=== PATIENT | male | born 2005 | race Caucasian/White ===

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

== ENCOUNTER 2024-06-10 01:49 | Emergency (ER) | payer BC, SELFPAY ==
--- NOTE | 2024-06-10 02:11 | EDPHYS ---
Physician Documentation [facility] Name: Man De La O Age: 19 yrs Sex: Male : 2005 Arrival Date: 06/10/2024 Time: 01:49 Bed 8 Private MD: ED Physician Krishan Sweeney HPI: 06/10 02:27 This 19 yrs old Male presents to ER via Ambulatory with complaints of High Blood rt Pressure. 02:27 Patient presents to the ED with reported high blood pressure at about 140s over 90s at rt home, states that this worried him. States that he takes exogenous testosterone. Denies chest pain, shortness of breath, other acute complaints, symptoms are mild in severity, no other aggravating alleviating factors.. Historical: - Allergies: 02:08 Versed; lg3 02:08 Neurontin; lg3 - Home Meds: 02:08 testosterone enanthate 200 mg/mL intramuscular oil every week [Active]; lg3 - PMHx: 02:08 None; lg3 - PSHx: 02:08 Tonsillectomy; lg3 - Immunization history:: Adult Immunizations up to date. - Infectious Disease History:: Denies. - Social history:: Smoking status: Reported history of juuling and/or vaping. Patient/guardian denies using alcohol, street drugs. - Family history:: not pertinent. ROS: 02:27 Constitutional: Negative for fever, chills, and weight loss, Cardiovascular: Negative rt for chest pain, palpitations, and edema, Respiratory: Negative for shortness of breath, cough, wheezing, and pleuritic chest pain, Abdomen/GI: Negative for abdominal pain, nausea, vomiting, diarrhea, and constipation, MS/Extremity: Negative for injury and deformity, Skin: Negative for injury, rash, and discoloration, Neuro: Negative for headache, weakness, numbness, tingling, and seizure, Exam: 02:26 Constitutional: This is a well developed, well nourished patient who is awake, alert, rt and in no acute distress. Head/Face: Normocephalic, atraumatic. Chest/axilla: Normal chest wall appearance and motion. Nontender with no deformity. No lesions are appreciated. Cardiovascular: Regular rate and rhythm with a normal S1 and S2. No gallops, murmurs, or rubs. Normal PMI, no JVD. No pulse deficits. Respiratory: Lungs have equal breath sounds bilaterally, clear to auscultation and percussion. No rales, rhonchi or wheezes noted. No increased work of breathing, no retractions or nasal flaring. Abdomen/GI: Soft, non-tender, with normal bowel sounds. No distension or tympany. No guarding or rebound. No evidence of tenderness throughout. Skin: Warm, dry with normal turgor. Normal color with no rashes, no lesions, and no evidence of cellulitis. MS/ Extremity: Pulses equal, no cyanosis. Neurovascular intact. Full, normal range of motion. Neuro: Awake and alert, GCS 15, oriented to person, place, time, and situation. Cranial nerves II-XII grossly intact. Motor strength 5/5 in all extremities. Sensory grossly intact. Cerebellar exam normal. Normal gait. :26 ECG was reviewed by the Attending Physician. Vital Signs: 02:05 BP 155 / 77; Pulse 79; Resp 16 S; Temp 98.5(O); Pulse Ox 99% on R/A; Weight 70.31 kg lg3 (R); Height 5 ft. 9 in. (R); Pain 0/10; 02:05 Body Mass Index 22.89 (70.31 kg, 175.26 cm) - Percentile 48.3 % lg3 02:05 Pain Scale: Adult lg3 MDM: 02:06 Medical Screening Exam initiated rt 02:27 Differential diagnosis: Hypertension, testosterone. Data reviewed: vital signs, nurses rt notes, EKG. Test considered but Not performed: Other Details No symptoms currently, low suspicion for endorgan dysfunction, labs are not indicated. Counseling: I had a detailed discussion with the patient and/or guardian regarding the historical points, exam findings, and any diagnostic results supporting the discharge/admit diagnosis, the presence of at least one elevated blood pressure reading (>120/80) during this emergency department visit, the need for outpatient follow up. Response to treatment: the patient's symptoms have markedly improved after treatment. 06/10 02:05 Order name: EKG - Nurse/Tech; Complete Time: 02:13 rt EC:26 Rate is 69 beats/min. Rhythm is regular, Normal Sinus Rhythm with No ectopy. QRS [place] rt is Normal. GA interval is normal. QRS interval is normal. QT interval is normal. No Q waves. T waves are Normal. No ST changes noted. Administered Medications: No medications were administered Disposition Summary: 06/10/24 02:11 Discharge Ordered Notes: Location: Home rt Problem: new rt Symptoms: have improved rt Condition: Stable rt Diagnosis - Elevated blood-pressure reading, without diagnosis of hypertension rt Followup: rt - With: Private Physician - When: 7 - 10 days - Reason: Discharge Instructions: - Discharge Summary Sheet rt - Hypertension, Adult rt Forms: - Medication Reconciliation Form rt - Antibiotic Education rt - Prescription Opioid Use rt - Patient Portal Instructions rt - Leadership Thank You Letter rt Signatures: Génesis Jerome RN RN lg3 Krishan Sweeney MD MD rt
--- NOTE | 2024-06-10 02:11 | ER ---
Nurse's Notes [facility] Name: Man De La O Age: 19 yrs Sex: Male : 2005 Arrival Date: 06/10/2024 Time: 01:49 Bed 8 Private MD: Diagnosis: Elevated blood-pressure reading, without diagnosis of hypertension Presentation: 06/10 02:05 Chief complaint: Patient states: my blood pressure was high at home and i kept checking lg3 it and it stayed high. reports 140's/70's. i think my estrogen is to high and its giving me anxiety. Coronavirus screen: Client denies travel out of the [place] in the last 14 days. At this time, the client does not indicate any symptoms associated with coronavirus-19. Ebola Screen: No symptoms or risks identified at this time. Initial Sepsis Screen: Does the patient meet any 2 criteria? No. Patient's initial sepsis screen is negative. Does the patient have a suspected source of infection? No. Patient's initial sepsis screen is negative. Risk Assessment: Do you want to hurt yourself or someone else? Patient reports no desire to harm self or others. Onset of symptoms was June 10, 2024. 02:05 Method Of Arrival: Ambulatory lg3 02:05 Acuity: KEYUR 4 lg3 Triage Assessment: 02:08 General: Appears in no apparent distress. comfortable, Behavior is cooperative, lg3 anxious. Pain: Denies pain. EENT: No deficits noted. No signs and/or symptoms were reported regarding the EENT system. Neuro: No deficits noted. Trent Agitation-Sedation Scale (RASS): 0 - Alert and Calm Level of Consciousness is awake, alert, obeys commands, Oriented to person, place, time, situation. Cardiovascular: No deficits noted. Denies chest pain, shortness of breath, Capillary refill < 3 seconds Clubbing of nail beds is absent JVD is absent Patient's skin is warm and dry. Respiratory: No deficits noted. Airway is patent Respiratory effort is even, unlabored, Respiratory pattern is regular, symmetrical. GI: No deficits noted. No signs and/or symptoms were reported involving the gastrointestinal system. : No signs and/or symptoms were reported regarding the genitourinary system. Derm: No deficits noted. No signs and/or symptoms reported regarding the dermatologic system. Skin is intact, is healthy with good turgor, Skin is dry, Skin is normal, Skin temperature is warm. Musculoskeletal: No deficits noted. No signs and/or symptoms reported regarding the musculoskeletal system. Circulation, motion, and sensation intact. Range of motion: intact in all extremities. Historical: - Allergies: 02:08 Versed; lg3 02:08 Neurontin; lg3 - Home Meds: 02:08 testosterone enanthate 200 mg/mL intramuscular oil every week [Active]; lg3 - PMHx: 02:08 None; lg3 - PSHx: 02:08 Tonsillectomy; lg3 - Immunization history:: Adult Immunizations up to date. - Infectious Disease History:: Denies. - Social history:: Smoking status: Reported history of juuling and/or vaping. Patient/guardian denies using alcohol, street drugs. - Family history:: not pertinent. Screenin:12 [facility] ED Fall Risk Assessment (Adult) History of falling in the last 3 months, lg3 including since admission No falls in past 3 months (0 pts) Confusion or Disorientation No (0 pts) Intoxicated or Sedated No (0 pts) Impaired Gait No (0 pts) Mobility Assist Device Used No (0 pt) Altered Elimination No (0 pt) Score/Fall Risk Level 0 - 2 = Low Risk Oriented to surroundings, Maintained a safe environment, Educated pt \T\ family on fall prevention, incl call for assistance when getting out of bed, Assessed \T\ reinforced patient's understanding of fall precautions. Abuse screen: Denies threats or abuse. Denies injuries from another. Nutritional screening: No deficits noted. Tuberculosis screening: No symptoms or risk factors identified. Assessment: 02:13 General: see triage assessment. lg3 Vital Signs: 02:05 BP 155 / 77; Pulse 79; Resp 16 S; Temp 98.5(O); Pulse Ox 99% on R/A; Weight 70.31 kg lg3 (R); Height 5 ft. 9 in. (R); Pain 0/10; 02:05 Body Mass Index 22.89 (70.31 kg, 175.26 cm) - Percentile 48.3 % lg3 02:05 Pain Scale: Adult 3 ED Course: 01:54 Patient arrived in ED. gm2 01:57 Krishan Sweeney MD is Attending Physician. rt 02:07 Triage completed. lg3 02:08 Arm band placed on right wrist. lg3 02:12 Patient has correct armband on for positive identification. Placed in gown. Bed in low lg3 position. Call light in reach. Side rails up X 1. Client placed on continuous cardiac and pulse oximetry monitoring. NIBP monitoring applied. Door closed. Noise minimized. Warm blanket given. Pillow given. Family accompanied patient. 02:12 EKG done, by ED staff, reviewed by Krishan Sweeney MD. Patient maintains SpO2 lg3 saturation greater than 95% on room air. 02:19 Génesis Jerome, RN is Primary Nurse. lg3 02:20 No provider procedures requiring assistance completed. Patient did not have IV access lg3 during this emergency room visit. 02:21 Provided Education on: anxiety. lg3 Administered Medications: No medications were administered Medication: 02:20 VIS not applicable for this client. lg3 Outcome: 02:11 Discharge ordered by . rt 02:20 Discharged to home ambulatory, lg3 02:20 Condition: stable 02:20 Discharge instructions given to patient, Instructed on discharge instructions, follow up and referral plans. Demonstrated understanding of instructions, follow-up care, 02:21 Patient left the ED. lg3 Signatures: Génesis Jerome RN RN lg3 Krishan Sweeney MD MD rt Aline Aburto 2
[2024-06-10 02:25] VITALS: BP 155/77; TEMP 98.5; O2SAT 99
--- NOTE | 2024-06-10 10:56 | EKG ---
Test Date: 2024-06-10 Test Time: 02:11:29 Monotypist: RAE MEASUREMENT RESULTS: Intervals: Rate: 69 NH: 122 QRSD: 92 QT: 370 QTc: 396 [place]: P: 80 NH: 122 QRS: 88 T: 72 INTERPRETIVE STATEMENTS: Normal sinus rhythm Normal ECG No previous ECG available for comparison Electronically Signed On 06-10-24 10:55:51 CDT by Nolan Patino
== END 2024-06-10 02:21 | disposition home or self-care (01) ==
LOC: ER 01:49
DX: R03.0 Elevated blood-pressure reading, without diagnosis of hypertension (principal)
CPT/HCPCS: 93005; 99283

== ENCOUNTER 2024-06-22 22:24 | Emergency (ER) | payer SELFPAY ==
[2024-06-22] MEDS ORDERED: IBUPROFEN 200 MG TAB PO ONE (22:46)
[2024-06-22] MEDS ORDERED: IBUPROFEN 400 MG TAB ONE (22:47)
--- NOTE | 2024-06-22 23:38 | EDPHYS ---
Physician Documentation [facility] Name: Man De La O Age: 19 yrs Sex: Male : 2005 Arrival Date: 06/22/2024 Time: 22:24 Bed DX3 Private MD: ED Physician Chintan Hill HPI: 06/22 22:30 This 19 yrs old Male presents to ER via Unassigned with complaints of Leg Pain, tree kb feel on leg. 22:30 Pt is a 19 year old male who presents for pain to right lower leg. States he was kb cutting a tree and a log (about 300 pounds) fell into right lower leg around 1330. States he was able to walk for the first few hours afterwards, but is unable to now. States the pain, swelling and bruising has gotten progressively worse. . Historical: - Allergies: 22:40 Neurontin; vc1 22:40 Versed; vc1 - Home Meds: 22:40 testosterone enanthate 200 mg/mL intramuscular oil every week [Active]; vc1 - PSHx: 22:40 Tonsillectomy; vc1 - Immunization history:: Client reports having NOT received the Covid vaccine. - Infectious Disease History:: Denies. - Social history:: Smoking status: Reported history of juuling and/or vaping. ROS: 22:34 Constitutional: As per HPI kb Exam: 22:34 Constitutional: This is a well developed, well nourished patient who is awake, alert, kb and in no acute distress. Head/Face: Normocephalic, atraumatic. ENT: Moist Mucous membranes Cardiovascular: Regular rate Respiratory: Respirations even and unlabored. No increased work of breathing. Talking in full sentences Neuro: Awake and alert, GCS 15, oriented to person, place, time, and situation. 22:34 Musculoskeletal/extremity: Extremities: grossly normal except: noted in the right ocasio: ecchymosis, pain, swelling, tenderness, ROM: intact in all extremities, Circulation is intact in all extremities. Sensation intact. Weight bearing: is unable to bear weight, Vital Signs: 22:39 Weight 74.84 kg; Height 5 ft. 10 in. ; Pain 3/10; vc1 22:41 BP 140 / 64; Pulse 84; Resp 16; Temp 98.3; Pulse Ox 99% ; vc1 22:39 Body Mass Index 23.67 (74.84 kg, 177.8 cm) - Percentile 58.0 % vc1 22:39 Pain Scale: Adult vc1 MDM: 22:29 Medical Screening Exam initiated kb 22:35 Differential diagnosis: closed fracture, contusion. Data reviewed: vital signs, nurses kb notes. Historians other than the Patient: Parent: father. 23:36 Counseling: I had a detailed discussion with the patient and/or guardian regarding the kb historical points, exam findings, and any diagnostic results supporting the discharge/admit diagnosis, radiology results, the need for outpatient follow up, a family practitioner, to return to the emergency department if symptoms worsen or persist or if there are any questions or concerns that arise at home. 06/22 22:34 Order name: Tib Fib Right XRAY kb 06/22 22:34 Order name: Ice pack; Complete Time: 22:44 kb 06/22 23:37 Order name: Elier Wrap; Complete Time: 00:16 kb 06/22 23:37 Order name: Crutches; Complete Time: 00:16 kb Administered Medications: 22:51 Drug: Ibuprofen PO 600 mg PO once Route: PO; vc1 06/23 00:16 Follow up: Response: No adverse reaction; No change in condition vc1 00:16 Drug: Hydrocodone-Acetaminophen PO (7.5 mg-325 mg) 1 tabs PO once Route: PO; vc1 00:16 Follow up: Response: Medication administered at discharge. vc1 Disposition: 20:54 Co-signature as Attending Physician, Chintan Hill MD I agree with the assessment sp4 and plan of care. I reviewed the patient's care provided by the Advanced Practice Provider and agree with the diagnosis and treatment plan. Disposition Summary: 06/22/24 23:37 Discharge Ordered Condition: Stable kb Diagnosis - Contusion of right lower leg kb Followup: kb - With: Emergency Department - When: As needed - Reason: Worsening of condition Followup: kb - With: Private Physician - When: 2 - 3 days - Reason: Recheck today's complaints, Continuance of care, Re-evaluation by your physician Discharge Instructions: - Discharge Summary Sheet kb - Contusion, [id number] kb Forms: - Medication Reconciliation Form kb - Antibiotic Education kb - Prescription Opioid Use kb - Patient Portal Instructions kb - Leadership Thank You Letter kb Signatures: Dispatcher [employer] NEELAMMS JohnsonKinjal, [employer]-C [employer]-Brynn Eddy RN RN vc1 Chintan Hill MD MD sp4 Corrections: (The following items were deleted from the chart) 06/22 22:37 22:30 Pt is a 19 year old male who presents for pain to right lower leg. States he was kb cutting a tree and a log fell into right lower leg around 1330. States he was able to walk for the first few hours afterwards, but is unable to now. States the pain, swelling and bruising has gotten progressively worse. . kb
--- NOTE | 2024-06-22 23:38 | ER ---
Nurse's Notes [facility] Name: Man De La O Age: 19 yrs Sex: Male : 2005 Arrival Date: 06/22/2024 Time: 22:24 Bed DX3 Private MD: Diagnosis: Contusion of right lower leg Presentation: 06/22 22:39 Chief complaint: Patient states: cutting a tree and log fell on leg. Coronavirus vc1 screen: Client denies travel out of the [place] in the last 14 days. At this time, the client does not indicate any symptoms associated with coronavirus-19. Ebola Screen: Patient negative for fever greater than or equal to 101.5 degrees Fahrenheit, and additional compatible Ebola Virus Disease symptoms Patient denies exposure to infectious person. Patient denies travel to an Ebola-affected area in the 21 days before illness onset. No symptoms or risks identified at this time. Initial Sepsis Screen: Does the patient meet any 2 criteria? No. Patient's initial sepsis screen is negative. Does the patient have a suspected source of infection? No. Patient's initial sepsis screen is negative. Risk Assessment: Do you want to hurt yourself or someone else? Patient reports no desire to harm self or others. Onset of symptoms was June 22, 2024 at 13:30. Care prior to arrival: None. 22:39 Method Of Arrival: Wheelchair vc1 22:39 Acuity: KEYUR 3 vc1 Triage Assessment: 22:40 General: Appears in no apparent distress. uncomfortable, slender, well groomed, well vc1 developed, Behavior is calm, cooperative, appropriate for age. Pain: Complains of pain in right ocasio Pain does not radiate. Pain currently is 8 out of 10 on a pain scale. Quality of pain is described as sharp. EENT: No deficits noted. No signs and/or symptoms were reported regarding the EENT system. Neuro: Level of Consciousness is awake, alert, obeys commands, Oriented to person, place, time, situation, Appropriate for age. Cardiovascular: Heart tones S1 S2 present Capillary refill < 3 seconds Patient's skin is warm and dry. Respiratory: Airway is patent Respiratory effort is even, unlabored, Respiratory pattern is regular, symmetrical, Breath sounds are clear bilaterally. GI: No deficits noted. No signs and/or symptoms were reported involving the gastrointestinal system. : No deficits noted. No signs and/or symptoms were reported regarding the genitourinary system. Derm: Skin is intact, is healthy with good turgor, Skin is dry, Skin is normal, Bruising that is bright red, dark purple, on right ocasio. Musculoskeletal: Reports pain in right ocasio. Historical: - Allergies: 22:40 Neurontin; vc1 22:40 Versed; vc1 - Home Meds: 22:40 testosterone enanthate 200 mg/mL intramuscular oil every week [Active]; vc1 - PSHx: 22:40 Tonsillectomy; vc1 - Immunization history:: Client reports having NOT received the Covid vaccine. - Infectious Disease History:: Denies. - Social history:: Smoking status: Reported history of juuling and/or vaping. Screenin:40 [facility] ED Fall Risk Assessment (Adult) History of falling in the last 3 months, vc1 including since admission No falls in past 3 months (0 pts) Confusion or Disorientation No (0 pts) Intoxicated or Sedated No (0 pts) Impaired Gait Yes (1 pt) Mobility Assist Device Used Yes (1 pt) Altered Elimination No (0 pt) Score/Fall Risk Level 0 - 2 = Low Risk Oriented to surroundings, Maintained a safe environment, Educated pt \T\ family on fall prevention, incl call for assistance when getting out of bed. Abuse screen: Denies threats or abuse. Nutritional screening: No deficits noted. Tuberculosis screening: No symptoms or risk factors identified. Vital Signs: 22:39 Weight 74.84 kg; Height 5 ft. 10 in. ; Pain 3/10; vc1 22:41 BP 140 / 64; Pulse 84; Resp 16; Temp 98.3; Pulse Ox 99% ; vc1 22:39 Body Mass Index 23.67 (74.84 kg, 177.8 cm) - Percentile 58.0 % vc1 22:39 Pain Scale: Adult vc1 ED Course: 22:28 Patient arrived in ED. gm2 22:29 Kinjal Johnson FNP-C [facility]. kb 22:29 Chintan Hill MD is Attending Physician. kb 22:40 Triage completed. vc1 22:41 Arm band placed on right wrist. vc1 22:44 Brynn Miller RN is Primary Nurse. vc1 23:00 Tib Fib Right XRAY In Process Unspecified. EDMS 06/23 00:17 No provider procedures requiring assistance completed. Patient did not have IV access vc1 during this emergency room visit. 00:18 Patient has correct armband on for positive identification. treated from diagnostic vc1 chair. Provided Education on: f/u with Ortho. Administered Medications: 06/22 22:51 Drug: Ibuprofen PO 600 mg PO once Route: PO; vc1 06/23 00:16 Follow up: Response: No adverse reaction; No change in condition vc1 00:16 Drug: Hydrocodone-Acetaminophen PO (7.5 mg-325 mg) 1 tabs PO once Route: PO; vc1 00:16 Follow up: Response: Medication administered at discharge. vc1 Medication: 00:17 VIS not applicable for this client. vc1 Outcome: 06/22 23:37 Discharge ordered by . fay 06/23 00:19 Discharged to home with crutches, vc1 Condition: stable Discharge instructions given to patient, Instructed on discharge instructions, follow up and referral plans. Demonstrated understanding of instructions, follow-up care, 00:20 Patient left the ED. vc1 Signatures: Dispatcher [employer] EDCO Kinjal Johnson, GAMAL NELSONP-Brynn Eddy RN RN vc1 Aline Aburto 2
[2024-06-23] MEDS ORDERED: HYDROCODONE/APAP 7.5/325 MG TAB ONE (00:07)
[2024-06-23 00:25] VITALS: BP 140/64; TEMP 98.3; O2SAT 99
--- NOTE | 2024-06-23 06:12 | RAD REPORT ---
EXAM DESCRIPTION: Tib Fib Right CLINICAL HISTORY: 19 years Male, PAIN COMPARISON: None. IMPRESSION: No fracture or dislocation. Joint spaces are preserved. Bone mineralization is normal. Distal pretibial swelling. Electronically signed by: Serge Sheikh DO 06/22/2024 11:31 PM CDT RP 9 Due to temporary technical issues with the PACS/GoInstant reporting system, reports are being prince d by the in-house radiologist without review as a courtesy to ensure prompt reporting the interpreting radiologist is fully responsible for the content of the report. Transcribed Date/Time: 06/23/2024 6:12 AM
== END 2024-06-23 00:20 | disposition home or self-care (01) ==
LOC: ER 22:24
DX: S80.11XA Contusion of right lower leg, initial encounter (principal); W22.8XXA Striking against or struck by other objects, initial encounter
CPT/HCPCS: 99283

== ENCOUNTER 2024-07-08 22:57 | Emergency (ER) | payer SELFPAY ==
[2024-07-08] MEDS ORDERED: KETOROLAC 30 MG/ML INJ ONE (23:26)
--- NOTE | 2024-07-09 02:20 | RAD REPORT ---
CT CHEST WITHOUT IV CONTRAST CLINICAL INDICATION: Dropped bar with weights onto lower chest. COMPARISON: None TECHNIQUE: CT exam of the chest was obtained without contrast. Multiplanar reformats were provided. D ose-optimization techniques such as automated exposure control, iterative reconstruction, and mA and/or kV adjustment for patient size was utilized for this examination. FINDINGS: LOWER NECK: Unremarkable. AIRWAYS: Trachea and mainstem bronchi are patent. LUNGS/PLEURA: 1.2 cm nodule in left lower lobe on series 201 image 68. Additional multiple small 3 to 4 mm nodules scattered in both lungs (for example all series 201 image 84, 86 in right lower lobe, image 39, 50, 57, 61 on left upper lobe, image 77, 81 in left lower lobe. No focal air space consolid ation. No pleural effusions or pneumothorax. VASCULATURE: Unremarkable. MEDIASTINUM/NODES: No pathologic adenopathy. HEART: Normal heart size. No pericardial effusion. CHEST WALL: Unremarkable. UPPER ABDOMEN: Unremarkable. BONES: No acute fracture or malalignment. Mild endplate degenerative changes in multiple lower thorac ic vertebral bodies. No acute fracture. No compression deformity. No suspicious sclerotic or lytic bone lesion. IMPRESSION: 1. Indeterminant multiple pulmonary nodules with largest one measuring 1.2 cm. Findings could refle ct infectious, inflammatory or neoplastic process. Follow-up in 3 months is recommended. 2. No acute traumatic injury in CT chest. Electronically signed by: Winter Cottrell MD 07/09/2024 02:04 AM CDT Due to temporary technical issues with the PACS/contrib.com reporting system, reports are being prince d by the in-house radiologist without review as a courtesy to ensure prompt reporting the interpreting radiologist is fully responsible for the content of the report. Transcribed Date/Time: 07/09/2024 2:20 AM
--- NOTE | 2024-07-09 02:40 | EDPHYS ---
Physician Documentation [facility] Name: Man De La O Age: 19 yrs Sex: Male : 2005 Arrival Date: 07/08/2024 Time: 22:57 Bed DX3 Private MD: ED Physician Chintan Hill HPI: 07/08 23:06 This 19 yrs old Male presents to ER via Unassigned with complaints of dropped wieghts kb on chest. 23:06 Pt is a 19 year old male who presents for chest pain after dropping weighted bar onto kb it around [id number] this evening. Reports weight of 225#. Denies any other injuries. Denies shortness of breath.. Historical: - Allergies: 23:10 Neurontin; me1 23:10 Versed; me1 - Immunization history:: Adult Immunizations up to date. - Infectious Disease History:: Denies. - Social history:: Smoking status: Reported history of juuling and/or vaping. ROS: 23:05 Constitutional: As per HPI kb Exam: 23:05 Constitutional: This is a well developed, well nourished patient who is awake, alert, kb and in no acute distress. Head/Face: Normocephalic, atraumatic. ENT: Moist Mucous membranes Cardiovascular: Regular rate Respiratory: Respirations even and unlabored. No increased work of breathing. Talking in full sentences Abdomen/GI: Soft, non-tender. No distention Skin: Warm, dry with normal turgor. Normal color. MS/ Extremity: Pulses equal, no cyanosis. Neurovascular intact. Full, normal range of motion. Neuro: Awake and alert, GCS 15, oriented to person, place, time, and situation. 23:05 Chest/axilla: Inspection: normal, Palpation: tenderness, that is mild, of the diaphragm, that totally reproduces the patient's complaints, Vital Signs: 23:08 BP 146 / 87; Pulse 108; Resp 20; Temp 97.7; Pulse Ox 100% ; Weight 72.57 kg; Height 5 me1 ft. 10 in. ; Pain 4/10; 07/09 01:00 BP 127 / 81; Pulse 95; Resp 18 S; Pulse Ox 100% on R/A; ha1 02:30 BP 135 / 85; Pulse 98; Resp 17 S; Pulse Ox 100% on R/A; ha1 07/08 23:08 Body Mass Index 22.96 (72.57 kg, 177.8 cm) me1 07/08 23:08 Pain Scale: Adult me1 MDM: 07/08 23:02 Medical Screening Exam initiated kb 23:06 Data reviewed: vital signs, nurses notes. kb 07/09 01:01 Transition of care: After a detail discussion of the patient's case, care is kb transferred to Chintan Hill MD. 07/09 00:55 Order name: Thorax Wo Con EDMS Administered Medications: 07/08 23:36 Not Given (Patient Refused): [id number] mg IM once ha1 Disposition: 07/09 02:38 Co-signature as Attending Physician, Chintan Hill MD I agree with the assessment sp4 and plan of care. I reviewed the patient's care provided by Advanced Practice Provider \T\ agree w/ the diagnosis \T\ care plan. I personally saw the pt \T\ performed a substantive portion of the visit, incldng all aspects of the (History/Exam/Medical Decision Making). Disposition Summary: 07/09/24 02:39 Discharge Ordered Notes: Location: Home sp4 Problem: new sp4 Symptoms: have improved sp4 Condition: Stable sp4 Diagnosis - Solitary pulmonary nodule sp4 - Acute traumatic chest wall pain, bilateral pulmonary nodules, pulmonary nodule sp4 as incidental finding Followup: sp4 - With: Luiz Nguyen DO - When: 7 - 10 days - Reason: Recheck today's complaints Discharge Instructions: - Discharge Summary Sheet sp4 - Pulmonary Nodule sp4 Forms: - Patient Portal Instructions sp4 Signatures: Dispatcher MedHost EDFL Kinjal Johnson, SQL ARCHITECT-C SQL ARCHITECT-Chintan Monterroso MD MD sp4 Yenny Naidu RN RN ar1 Mikki Scherer RN 1 Corrections: (The following items were deleted from the chart) 07/08 23:05 23:05 Chest Single View+RAD.RAD.BRZ ordered. EDFL EDMS 23:10 23:10 PSHx: Tonsillectomy; me1 ar1 23:10 23:10 PSHx: Tonsillectomy; me1 me1 07/09 01:07/08 23:09 Thorax Wo Con+CT.RAD.BRZ ordered. EDMS EDMS
--- NOTE | 2024-07-09 02:40 | ER ---
Nurse's Notes [facility] Name: Man De La O Age: 19 yrs Sex: Male : 2005 Arrival Date: 07/08/2024 Time: 22:57 Bed Waiting Private MD: Diagnosis: Solitary pulmonary nodule;Acute traumatic chest wall pain, bilateral pulmonary nodules, pulmonary nodule as incidental finding Presentation: 07/08 23:08 Chief complaint: Patient states: about 9 pm patient dropped the bar with 225 lbs on it me1 across his lower chest. Pain radiates to midback. Coronavirus screen: Vaccine status: Patient reports being unvaccinated. Ebola Screen: No symptoms or risks identified at this time. Initial Sepsis Screen: Does the patient meet any 2 criteria? HR > 90 bpm. No. Patient's initial sepsis screen is negative. Does the patient have a suspected source of infection? No. Patient's initial sepsis screen is negative. Risk Assessment: Do you want to hurt yourself or someone else? Patient reports no desire to harm self or others. Onset of symptoms was July 08, 2024 at 21:00. 23:08 Method Of Arrival: Ambulatory [facility] 23:08 Acuity: KEYUR 4 me1 Historical: - Allergies: 23:10 Neurontin; me1 23:10 Versed; me1 - Immunization history:: Adult Immunizations up to date. - Infectious Disease History:: Denies. - Social history:: Smoking status: Reported history of juuling and/or vaping. Screenin/09 00:00 [facility] ED Fall Risk Assessment (Adult) History of falling in the last 3 months, ha1 including since admission No falls in past 3 months (0 pts) Confusion or Disorientation No (0 pts) Intoxicated or Sedated No (0 pts) Impaired Gait No (0 pts) Mobility Assist Device Used No (0 pt) Altered Elimination No (0 pt) Score/Fall Risk Level 0 - 2 = Low Risk Oriented to surroundings, Maintained a safe environment, Educated pt \\T\\ family on fall prevention, incl call for assistance when getting out of bed, Hourly rounding (assess needs \\T\\ fall precautionary measures) done. Abuse screen: Denies threats or abuse. Denies injuries from another. Nutritional screening: No deficits noted. Tuberculosis screening: No symptoms or risk factors identified. Assessment: 07/08 23:03 General: Appears comfortable, Behavior is calm, cooperative. Pain: Complains of pain in ha1 diaphragm Pain currently is 7 out of 10 on a pain scale. Quality of pain is described as aching. Neuro: Level of Consciousness is awake, alert, obeys commands, Oriented to person, place, time, situation. Cardiovascular: Capillary refill < 3 seconds Patient's skin is warm and dry. Respiratory: Airway is patent Respiratory effort is even, unlabored, Respiratory pattern is regular, symmetrical. GI: Abdomen is round non-distended, Bowel sounds present X 4 quads. Reports upper abdominal pain. : No signs and/or symptoms were reported regarding the genitourinary system. Derm: Skin is pink, warm \\T\\ dry. Musculoskeletal: Circulation, motion, and sensation intact. Range of motion: intact in all extremities. 07/09 00:00 Reassessment: Patient and/or family updated on plan of care and expected duration. Pain ha1 level reassessed. Patient is alert, oriented x 3, equal unlabored respirations, skin warm/dry/pink. 01:00 Reassessment: Patient and/or family updated on plan of care and expected duration. Pain ha1 level reassessed. Patient is alert, oriented x 3, equal unlabored respirations, skin warm/dry/pink. 02:00 Reassessment: Patient and/or family updated on plan of care and expected duration. Pain ha1 level reassessed. Patient is alert, oriented x 3, equal unlabored respirations, skin warm/dry/pink. 02:05 Reassessment: PATIENT STATES" I AM TIRED OF WAITING, I AM JUST GOING TO GO HOME AND THE [facility] CAN CALL ME WITH THE RESULTS.". 02:20 Reassessment: DR. HILL CALLED PATIENT TO NOTIFIED OF CT RESULTS. [facility] 02:46 Reassessment: Patient and/or family updated on plan of care and expected duration. Pain ha1 level reassessed. Patient is alert, oriented x 3, equal unlabored respirations, skin warm/dry/pink. PATIENT RETURNED TO THE ER. Vital Signs: 07/08 23:08 BP 146 / 87; Pulse 108; Resp 20; Temp 97.7; Pulse Ox 100% ; Weight 72.57 kg; Height 5 me1 ft. 10 in. ; Pain 4/10; 07/09 01:00 BP 127 / 81; Pulse 95; Resp 18 S; Pulse Ox 100% on R/A; ha1 02:30 BP 135 / 85; Pulse 98; Resp 17 S; Pulse Ox 100% on R/A; ha1 07/08 23:08 Body Mass Index 22.96 (72.57 kg, 177.8 cm) me1 07/08 23:08 Pain Scale: Adult ks1 ED Course: 07/08 23:02 Patient arrived in ED. gm2 23:02 Kinjal Johnson FNP-C is PHCP. kb 23:02 Chintan Hill MD is Attending Physician. kb 23:03 Patient has correct armband on for positive identification. Bed in low position. Call ha1 light in reach. Side rails up X 1. 23:03 Provided Education on:. ha1 23:10 Triage completed. ks1 23:10 Arm band placed on Patient placed in waiting room. ks1 07/09 00:16 Bright Flaherty RN is Primary Nurse. rg5 01:03 Thorax Wo Con In Process Unspecified. EDMS 02:38 Luiz Nguyen DO is Referral Physician. sp4 02:48 No provider procedures requiring assistance completed. Patient did not have IV access ha1 during this emergency room visit. Administered Medications: 07/08 23:36 Not Given (Patient Refused): [id number] mg IM once ha1 Outcome: 07/09 02:39 Discharge ordered by MD. sp4 02:49 Discharged to home ambulatory, ha1 02:49 Condition: stable 02:49 Discharge instructions given to patient, Instructed on discharge instructions, follow up and referral plans. Demonstrated understanding of instructions, follow-up care, 03:04 Patient left the ED. ha1 Signatures: Dispatcher [employer] EDKY Kinjal Johnson FNP-C FNP-Mikki Baker RN RN Chintan Toure MD MD sp4 Yenny Naidu RN RN ks1 Aline Aburto 2 Bright Flaherty RN RN rg5 Corrections: (The following items were deleted from the chart) 07/08 23:10 23:10 PSHx: Tonsillectomy; ks1 me1 23:10 23:10 PSHx: Tonsillectomy; ks1 me1 07/09 01:31 07/08 23:28 In radiology for Thorax Wo Con+CT.RAD.BRZ. EDMS EDMS
[2024-07-09 03:09] VITALS: TEMP 97.7; O2SAT 100
[2024-07-09 03:12] VITALS: BP 135/85
== END 2024-07-09 03:04 | disposition home or self-care (01) ==
LOC: ER 22:57
DX: R07.89 Other chest pain (principal); R91.1 Solitary pulmonary nodule
CPT/HCPCS: 71250

== ENCOUNTER 2025-01-06 23:21 | Emergency (ER) | payer SELFPAY ==
--- NOTE | 2025-01-07 | EDPHYS ---
Physician Documentation [facility] Name: Man De La O Age: 19 yrs Sex: Male : 2005 Arrival Date: 01/06/2025 Time: 23:21 Bed IW4 Private MD: ED Physician Chintan Hill HPI: 01/06 23:34 This 19 yrs old Male presents to ER via Unassigned with complaints of High sp4 Blood Pressure. 01/07 00:08 Patient has eloped prior to my exam. sp4 Historical: - Allergies: 01/06 23:36 Neurontin; cp4 23:36 Versed; cp4 - Home Meds: 23:36 testosterone enanthate 200 mg/mL intramuscular oil every week [Active]; cp4 - Immunization history:: Adult Immunizations up to date. - Infectious Disease History:: Denies. - Social history:: Smoking status: Reported history of juuling and/or vaping. - Family history:: not pertinent. ROS: 01/07 20:45 Constitutional: Negative for fever, chills, and weight loss, positive for elevated sp4 blood pressure Vital Signs: 01/06 23:34 BP 169 / 76; Pulse 102; Resp 18; Temp 98.2; Pulse Ox 100% ; Weight 79.38 kg; Height 5 cp4 ft. 9 in. ; Pain 0/10; 23:34 Body Mass Index 25.84 (79.38 kg, 175.26 cm) cp4 23:34 Pain Scale: Adult cp4 MDM: 01/07 00:08 ED course: Patient has eloped prior to my exam. sp4 05:41 Medical Screening Exam initiated sp4 01/06 23:47 Order name: Cardiac monitoring sp4 01/06 23:47 Order name: EKG - Nurse/Tech sp4 01/06 23:47 Order name: IV Saline Lock sp4 01/06 23:47 Order name: Labs collected and sent sp4 01/06 23:47 Order name: O2 Per Protocol sp4 01/06 23:47 Order name: O2 Sat Monitoring sp4 Administered Medications: No medications were administered Disposition: 20:45 Chart complete. sp4 Disposition Summary: 01/07/25 00:00 Eloped Notes: Disposition: before being seen by provider al5 Reason: (see nurse's notes) al5 Signatures: Dispatcher [employer] EDChintan Huang MD MD sp4 Valerie Morales cp4 Mary Beth Forbes RN RN al5 Corrections: (The following items were deleted from the chart) 01/06 23:48 23:48 URINE DRUG SCREEN+.LAB.BRZ ordered. EDMS EDMS
--- NOTE | 2025-01-07 | ER ---
Nurse's Notes [facility] Name: Man De La O Age: 19 yrs Sex: Male : 2005 Arrival Date: 01/06/2025 Time: 23:21 Bed IW4 Private MD: Diagnosis: Presentation: 01/06 23:34 Chief complaint: Patient states: states high blood pressure after taking pre workout cp4 and going to the gym. Coronavirus screen: Client denies travel out of the [place] in the last 14 days. At this time, the client does not indicate any symptoms associated with coronavirus-19. Ebola Screen: Patient negative for fever greater than or equal to 101.5 degrees Fahrenheit, and additional compatible Ebola Virus Disease symptoms Patient denies exposure to infectious person. Patient denies travel to an Ebola-affected area in the 21 days before illness onset. No symptoms or risks identified at this time. Initial Sepsis Screen: Does the patient meet any 2 criteria? HR > 90 bpm. No. Patient's initial sepsis screen is negative. Does the patient have a suspected source of infection? No. Patient's initial sepsis screen is negative. Risk Assessment: Do you want to hurt yourself or someone else? Patient reports no desire to harm self or others. Onset of symptoms was January 06, 2025. 23:34 Method Of Arrival: Ambulatory cp4 23:34 Acuity: KEYUR 3 cp4 Triage Assessment: 23:36 General: Appears in no apparent distress. comfortable, Behavior is calm, cooperative, cp4 appropriate for age. Pain: Denies pain. Historical: - Allergies: 23:36 Neurontin; cp4 23:36 Versed; cp4 - Home Meds: 23:36 testosterone enanthate 200 mg/mL intramuscular oil every week [Active]; cp4 - Immunization history:: Adult Immunizations up to date. - Infectious Disease History:: Denies. - Social history:: Smoking status: Reported history of juuling and/or vaping. - Family history:: not pertinent. Assessment: 23:50 Reassessment: Called to room, no answer. cp4 Vital Signs: 23:34 BP 169 / 76; Pulse 102; Resp 18; Temp 98.2; Pulse Ox 100% ; Weight 79.38 kg; Height 5 cp4 ft. 9 in. ; Pain 0/10; 23:34 Body Mass Index 25.84 (79.38 kg, 175.26 cm) cp4 23:34 Pain Scale: Adult cp4 ED Course: 23:32 Patient arrived in ED. gm2 23:33 Carley Moeller [facility]-C [facility] sb4 23:33 Chintan Hill MD is Attending Physician. sb4 23:34 Chintan Hill MD is Attending Physician. sp4 23:36 Triage completed. cp4 23:36 Arm band placed on right wrist. Patient placed in waiting room. cp4 Administered Medications: No medications were administered Outcome: 01/07 00:00 Patient left the ED. al5 Signatures: Carley Moeller PA-C PA-C sb4 Chintan Hill MD MD sp4 Valerie Morales cp4 Aline Aburto gm2 Mary Beth Forbes, RN RN al5
[2025-01-07 00:12] VITALS: BP 169/76; TEMP 98.2; O2SAT 100
== END 2025-01-07 | disposition left against medical advice (07) ==
LOC: ER 23:21
DX: Z53.21 Procedure and treatment not carried out due to patient leaving prior to being seen by health care provider (principal)
CPT/HCPCS: 99281